=== PATIENT | female | born 1985 | race Caucasian/White ===

== ENCOUNTER 2017-12-15 10:15 | Emergency (ER) | payer BC, OTHER ==
[2017-06-10 10:30] VITALS: Ht 162.6 cm; Wt 98.4 kg
[~2017-12-15] VITALS: Ht 162.6 cm; Wt 98.4 kg
[~2017-12-15 10:15] MED LIST: ACET-1718 PO; ACET-3017 PO; ACET500T68 PO; ALB18R INH; AMOX500T10 PO; CEPH500C24 PO; CITA-137 PO; CITA-141 PO; COUGH SYRUP; CYCL10TA29 PO; DOCU-202 PO; DOCU240C67 PO; FOLI0.4T56 PO; GUAI1TBM PO; HYDR-4225 PO; HYDR-4309 PO; HYDR10TA3 PO; HYDR2TAB4 PO; IBUP800T37 PO; METH-543 PO; OXYC-373 PO; OXYC-865 PO; PER PO; PNV91TAB3; PREN-129 PO; VALA500T66 PO; [UNRECOGNIZED DRUG - OTHER]; [UNRECOGNIZED DRUG - OTHER]; [UNRECOGNIZED DRUG - REMARK]
--- NOTE | 2017-12-15 10:23 | ER Report ---
History and Physical Time Seen By MD: 10:23 Hx. of Stated Complaint: PATIENT HAS BEEN FEELING BAD SINCE THE BEGINNING OF OCTOBER. SHE REPORTS THAT SHE HAS HAD INCREASED SHORTNESS OF BREATH FOR THE LAST 4 DAYS HPI/ROS CHIEF COMPLAINT: Cough, shortness of breath HISTORY OF PRESENT ILLNESS: This is a 32-year-old female. She has not been feeling well for the last several weeks, much worse the last 4 days. Very short of breath the last 4 days. Coughing. Nausea. Subjective fevers and chills. Increased congestion. No diarrhea. No dysuria but she will have some leakage with coughing occasionally, but leakage is been off and on since of her child 17 months ago. No chest pain but chest feels tight. No abdominal pain. No rashes or bruising. She did have a feeling of fullness in the right side of her throat over the last few weeks but this seems to have resolved. Poor oral intake the last few days as well. Some dizziness with standing and with cough. She was ill for several weeks as noted, thought she was starting to feel better , then worsening, similar to a secondary bacterial infection such as pneumonia or sinusitis. Allergies: Coded Allergies: No Known Drug Allergies (Unverified , 05/14/16) Home Meds Active Scripts Guaifenesin/Codeine (GUAIFENESIN-CODEINE SYRUP) 5 Ml Syrp, 5 ML PO Q6H Y for COUGH, #120 ML 0 Refills Prov:ANTWAN TREJO MD 12/15/17 Prednisone (PREDNISONE) 20 Mg Tablet, 60 MG PO QDAY, #12 TAB 0 Refills Prov:ANTWAN TREJO MD 12/15/17 Amoxicillin/Pot Clav 875-125 Mg Tab (AUGMENTIN 875-125 TABLET) 1 Each Tablet, 1 TAB PO Q12H, #20 TAB 0 Refills Prov:ANTWAN TREJO MD 12/15/17 Oxycodone/Acetaminophen (OXYCODONE/ACETAMINOPHEN 5MG/325 MG) 5 Mg/325 Mg Tab, 1- 2 TAB PO Q4H Y for PAIN, #30 TAB 0 Refills Prov:ANN LÓPEZ MD 06/11/17 Docusate Sodium (DOCUSATE SODIUM) 100 Mg Capsule, 1 CAP PO BID, #30 CAPSULE 0 Refills Prov:ANN LÓPEZ MD 06/11/17 Ibuprofen (IBUPROFEN) 800 Mg Tablet, 1 TAB PO Q8H, #30 TAB Take with food every 8 hours. Prov:ANN OBREGON MD 07/13/16 Reported Medications Citalopram Hydrobromide (CITALOPRAM HBR) 40 Mg Tablet, 40 MG PO QDAY, #5 TAB 06/09/17 Hydroxyzine Hcl (HYDROXYZINE HCL) 10 Mg Tablet, 5 MG PO QDAY 06/09/17 Valacyclovir Hcl (VALTREX) 500 Mg Tablet, 500 MG PO BID Y for AGITATION 04/23/15 Reviewed Nurses Notes: Yes Hx Smoking: No Smoking Status: Never Smoker Exposure to Second Hand Smoke?: No Hx Substance Use Disorder: No Hx Alcohol Use: Yes (occ) Constitutional Vital Sign - Last 24 Hours 12/15/17 12/15/17 12/15/17 12/15/17 10:19 10:20 10:30 10:42 Temp 97.8 Pulse 100 94 Resp 24 B/P (MAP) 136/56 (82) 136/56 111/84 (93) Pulse Ox 99 95 97 O2 Delivery Room Air Room Air 12/15/17 12/15/17 12/15/17 12/15/17 10:42 10:45 10:47 11:15 Pulse 80 87 96 102 Resp 16 16 Pulse Ox 100 93 12/15/17 11:30 Pulse 94 Pulse Ox 95 Intake and Output 12/15/17 12/15/17 12/16/17 15:00 23:00 07:00 Intake Total 1000 ml Balance 1000 ml Physical Exam General Appearance: The patient is alert. No acute distress. Does not look like she feels good, but non-toxic in appearance. Eyes: Pupils are equal, round. No pallor, injection or icterus. ENT: Mucous membranes are moist. Normal oral mucosa. Posterior oropharynx with erythema. Normal tympanic membranes and canals. Neck: Supple and non tender. No lymphadenopathy. Respiratory: Breathing easily and unlabored. Diminished bilateral bases. Cardiovascular: Regular rate and rhythm. No murmurs, gallops or rubs. Normal capillary refill. Gastrointestinal: Abdomen is soft and non tender. Nondistended. Normal active bowel sounds. Neurological: Alert and oriented x3. No focal neurologic deficits Skin: Warm and dry. No rashes. Musculoskeletal: Extremities are nontender. Full range of motion. DIFFERENTIAL DIAGNOSIS: After history and physical exam, differential diagnosis was considered for cough and shortness of breath, concern for pulmonary infectious process. Medical Decision Making Data Points Result Diagram: 12/15/17 1031 12/15/17 1031 Laboratory Hematology Test 12/15/17 10:21 12/15/17 10:31 Influenza Virus Type A (PCR) Negative (NEGATIVE) Influenza Virus Type B (PCR) Negative (NEGATIVE) Red Blood Count 5.17 M/uL (4.17-5.56) Mean Corpuscular Volume 85.4 fL (80.0-96.0) Mean Corpuscular Hemoglobin 28.9 pg (26.0-33.0) Mean Corpuscular Hemoglobin Concent 33.9 g/dL (32.0-36.0) Red Cell Distribution Width 13.1 % (11.5-14.5) Mean Platelet Volume 7.5 fL (7.2-11.1) Neutrophils (%) (Auto) 66.0 % (39.4-72.5) Lymphocytes (%) (Auto) 27.5 % (17.6-49.6) Monocytes (%) (Auto) 4.1 % (4.1-12.4) Eosinophils (%) (Auto) 1.8 % (0.4-6.7) Basophils (%) (Auto) 0.6 % (0.3-1.4) Nucleated RBC Relative Count (auto) 0.1 /100WBC Neutrophils # (Auto) 6.7 K/uL (2.0-7.4) Lymphocytes # (Auto) 2.8 K/uL (1.3-3.6) Monocytes # (Auto) 0.4 K/uL (0.3-1.0) Eosinophils # (Auto) 0.2 K/uL (0.0-0.5) Basophils # (Auto) 0.1 K/uL (0.0-0.1) Nucleated RBC Absolute Count (auto) 0.01 K/uL Sodium Level 140 mmol/L (137-145) Potassium Level 3.7 mmol/L (3.5-5.0) Chloride Level 103 mmol/L (98-107) Carbon Dioxide Level 25 mmol/L (22-31) Blood Urea Nitrogen 12 mg/dl (7-18) Creatinine 0.80 mg/dl (0.52-1.04) Glomerular Filtration Rate Calc > 60.0 Random Glucose 98 mg/dl (75-110) Calcium Level 9.1 mg/dl (8.4-10.2) Total Bilirubin 0.8 mg/dl (0.2-1.3) Aspartate Amino Transf (AST/SGOT) 33 U/L (0-35) Alanine Aminotransferase (ALT/SGPT) 56 U/L (0-56) Alkaline Phosphatase 62 U/L (0-126) Total Protein 7.7 gm/dl (6.3-8.2) Albumin 4.3 g/dl (3.5-5.0) Chemistry Test 12/15/17 10:21 12/15/17 10:31 Influenza Virus Type A (PCR) Negative (NEGATIVE) Influenza Virus Type B (PCR) Negative (NEGATIVE) White Blood Count 10.1 k/uL (4.5-11.0) Red Blood Count 5.17 M/uL (4.17-5.56) Hemoglobin 14.9 g/dL (12.0-16.0) Hematocrit 44.1 % (34.0-47.0) Mean Corpuscular Volume 85.4 fL (80.0-96.0) Mean Corpuscular Hemoglobin 28.9 pg (26.0-33.0) Mean Corpuscular Hemoglobin Concent 33.9 g/dL (32.0-36.0) Red Cell Distribution Width 13.1 % (11.5-14.5) Platelet Count 294 K/uL (150-450) Mean Platelet Volume 7.5 fL (7.2-11.1) Neutrophils (%) (Auto) 66.0 % (39.4-72.5) Lymphocytes (%) (Auto) 27.5 % (17.6-49.6) Monocytes (%) (Auto) 4.1 % (4.1-12.4) Eosinophils (%) (Auto) 1.8 % (0.4-6.7) Basophils (%) (Auto) 0.6 % (0.3-1.4) Nucleated RBC Relative Count (auto) 0.1 /100WBC Neutrophils # (Auto) 6.7 K/uL (2.0-7.4) Lymphocytes # (Auto) 2.8 K/uL (1.3-3.6) Monocytes # (Auto) 0.4 K/uL (0.3-1.0) Eosinophils # (Auto) 0.2 K/uL (0.0-0.5) Basophils # (Auto) 0.1 K/uL (0.0-0.1) Nucleated RBC Absolute Count (auto) 0.01 K/uL Glomerular Filtration Rate Calc > 60.0 Calcium Level 9.1 mg/dl (8.4-10.2) Total Bilirubin 0.8 mg/dl (0.2-1.3) Aspartate Amino Transf (AST/SGOT) 33 U/L (0-35) Alanine Aminotransferase (ALT/SGPT) 56 U/L (0-56) Alkaline Phosphatase 62 U/L (0-126) Total Protein 7.7 gm/dl (6.3-8.2) Albumin 4.3 g/dl (3.5-5.0) EKG/Imaging Imaging CHEST PA AND LAT COMPARISONS: 2 view chest dated June 09, 2017 ADDITIONAL PERTINENT HISTORY: Cough and chest pressure FINDINGS: Cardiomediastinal silhouette: Negative. Pulmonary vasculature: Negative. Lung castorena: Negative. Pleural spaces: Negative. Osseous structures: Negative. Surrounding soft tissues: Negative. IMPRESSION: Normal views of the chest. Report Dictated By: Kehinde De Souza MD at 12/15/2017 11:18 AM ED Course/Re-evaluation Clinical Indication for ER IV: Hydration, IV Access ED Course Influenza negative. Labs otherwise unremarkable. Chest x-ray negative. Symptoms suggest sinusitis and we discussed this at length. Will begin Augmentin. She can use some Guaifenesin with Codeine for cough and will also provide some Prednisone. Decision to Disposition Date: Dec 15, 2017 Decision to Disposition Time: 11:56 Depart Departure Latest Vital Signs Vital Signs Date Time Temp Pulse Resp B/P (MAP) Pulse Ox O2 Delivery O2 Flow Rate FiO2 12/15/17 11:30 94 95 12/15/17 10:47 16 12/15/17 10:42 Room Air 12/15/17 10:30 111/84 (93) 12/15/17 10:20 97.8 Impression: Primary Impression: Cough Condition: Improved Disposition: HOME OR SELF-CARE New Scripts Guaifenesin/Codeine (GUAIFENESIN-CODEINE SYRUP) 5 Ml Syrp 5 ML PO Q6H Y for COUGH, #120 ML 0 Refills Prov: ANTWAN TREJO MD 12/15/17 Prednisone (PREDNISONE) 20 Mg Tablet 60 MG PO QDAY, #12 TAB 0 Refills Prov: ANTWAN TREJO MD 12/15/17 Amoxicillin/Pot Clav 875-125 Mg Tab (AUGMENTIN 875-125 TABLET) 1 Each Tablet 1 TAB PO Q12H, #20 TAB 0 Refills Prov: ANTWAN TREJO MD 12/15/17 Patient Instructions: Acute Cough (ED), Sinusitis (ED) Additional Instructions: There was no sign of pneumonia on x-ray today. Your symptoms could represent a secondary bacterial infection such as sinusitis. We will start you on Augmentin 875/125 twice a day for 10 days. Take Prednisone 20mg tablets, 3 tablets once a day for 4 days. Take Guaifenesin with Codeine, 1 teaspoon every 4 hours as needed for severe cough. ANTWAN TREJO MD Dec 15, 2017 10:23
[2017-12-15 10:30] VITALS: BP 111/84
[2017-12-15] MEDS ORDERED: NS(*) 0.9% 1000 ML BAG 1,000 ML IV ONE (10:30)
[2017-12-15] MEDS ORDERED: ONDANSETRON 4 MG/2 ML VIAL IVP ONE (10:30)
[2017-12-15] MEDS ORDERED: ALBUTEROL 2.5 MG/3 ML NEB NEB ONE (10:40)
[2017-12-15 10:42] LABS: PLATELET COUNT, AUTOMATED 294 K/uL (150-450)
--- NOTE | 2017-12-15 11:21 | RADIOLOGY IMAGING REPORT ---
FACILITY: [facility] - [place] PATIENT NAME: Lizy Almaraz : 1985 MR: [id number] V: [id number] EXAM DATE: ORDERING PHYSICIAN: ANTWAN TREJO TECHNOLOGIST: Location: [facility] - [place] Patient: Lizy Almaraz : 1985 Visit/Account:[id number] Date of Sevice: 12/15/2017 CHEST PA AND LAT COMPARISONS: 2 view chest dated June 09, 2017 ADDITIONAL PERTINENT HISTORY: Cough and chest pressure FINDINGS: Cardiomediastinal silhouette: Negative. Pulmonary vasculature: Negative. Lung castorena: Negative. Pleural spaces: Negative. Osseous structures: Negative. Surrounding soft tissues: Negative. IMPRESSION: Normal views of the chest. Report Dictated By: Kehinde De Souza MD at 12/15/2017 11:18 AM Report E-Signed By: Kehinde De Souza MD at 12/15/2017 11:18 AM WSN:[id number]
[2017-12-15] MEDS ORDERED: AMOX-559 PO (12:02)
[2017-12-15] MEDS ORDERED: ROBC PO (12:02)
[2017-12-15] MEDS ORDERED: PRED20TA6 PO (12:02)
== END 2017-12-15 12:15 | disposition home or self-care (01) ==
LOC: ER 10:25
DX: R05 Cough (principal)
CPT/HCPCS: 71046; 85025; 87502; 94640; 96361; 96374; 99284; J2405; J7030; J7613; 82040; 82247; 82310; 82374; 82435; 82565; 82947; 84075; 84132; 84155; 84295; 84450; 84460; 84520